=== PATIENT | male | born 1950 | race Caucasian/White ===

== ENCOUNTER 2022-02-09 12:39 | Emergency (ER) | payer MEDICARE ==
[~2022-02-09] VITALS: Ht 170.2 cm; Wt 86.2 kg
[2022-02-09 12:46] VITALS: BP 112/70
[2022-02-09] MEDS ORDERED: TDAP [DIPH/PERTUSSIS/TET] 0.5 ML VIAL IM ONE ×2 (13:12→13:30)
[2022-02-09] MEDS ORDERED: AMOX-430 PO (14:32)
[2022-02-09] MEDS ORDERED: IBUP-1955 PO (14:32)
== END 2022-02-09 14:41 | disposition home or self-care (01) ==
LOC: ER 13:10
DX: S61.452A Open bite of left hand, initial encounter (principal); I10 Essential (primary) hypertension; E11.9 Type 2 diabetes mellitus without complications; Z88.8 Allergy status to other drugs, medicaments and biological substances; W54.0XXA Bitten by dog, initial encounter; Y93.89 Activity, other specified; Y92.89 Other specified places as the place of occurrence of the external cause; Y99.8 Other external cause status
CPT/HCPCS: 90715